=== PATIENT | male | born 1935 | race American Indian/Alaskan Native ===

== ENCOUNTER 2018-11-20 05:54 | Observation (INO) | payer MEDICARE ==
--- NOTE | 2018-11-16 10:54 | Anesthesia Consultation ---
Anesthesia Consult and Med Hx - Airway Anesthetic Teeth Evaluation: Dentures ROM Head & Neck: Adequate Mental/Hyoid Distance: Adequate Mallampati Class: Class II Intubation Access Assessment: Good - Pulmonary Exam CTA: Yes - Cardiac Exam Cardiac Exam: RRR - Pre-Operative Health Status ASA Pre-Surgery Classification: ASA2 Proposed Anesthetic Plan: General - Pulmonary Hx Smoking: No Hx Sleep Apnea: No (ANURADHA PRESCREEN HIGH RISK) - Cardiovascular System Hx Hypertension: Yes (X 10 YRS) - Endocrine Hx Hypothyroidism: Yes (OFF MEDS SINCE 04/2018) - Other Systems Hx Cancer: No
[2018-11-16 11:04] LABS: Basophils # (Auto) 0.1 K/mm3 (0.0-0.1); Eosinophils # (Auto) 0.2 K/mm3 (0.0-0.4); Eosinophils % (Auto) 4.3 % (0.0-4.3); Hematocrit 42.2 % (35.5-45.6); Hemoglobin 14.3 gm/dl (11.8-15.2); Lymphocytes # (Auto) 2.3 K/mm3 (1.2-5.4); Lymphocytes % (Auto) 46.5 % (13.4-35.0); Mean Corpuscular HGB Conc 34 % (32-34); Mean Corpuscular Volume 94 fl (84-94); Monocytes # (Auto) 0.6 K/mm3 (0.0-0.8); Monocytes % (Auto) 12.6 % (0.0-7.3); Platelet Count 172 K/mm3 (140-440); Red Cell Distribution Width 13.6 % (13.2-15.2)
[2018-11-16 11:19] LABS: Alanine Aminotransferase 35 units/L (7-56); Albumin 4.3 g/dL (3.9-5); BUN/Creatinine Ratio 12; Blood Urea Nitrogen 15 mg/dL (9-20); Calcium 9.5 mg/dL (8.4-10.2); Hemolysis Index 7
[2018-11-20] MEDS ORDERED: NACL BACTERIOSTATIC INFILTRATI ONE (07:00)
[2018-11-20] MEDS ORDERED: NEOSPORIN GU IR ONE ×2 (07:12→09:25)
[2018-11-20] MEDS ORDERED: TYLENOL PO NR (07:13)
[2018-11-20] MEDS ORDERED: DILAUDID IV PRN (07:13)
[2018-11-20] MEDS ORDERED: SUBLIMAZE IV PRN (07:13)
[2018-11-20] MEDS ORDERED: ZOFRAN IV PRN ×2 (07:13→10:59)
[2018-11-20] MEDS: LACTATED RINGERS 1,000 ML IV SCH (07:15)
--- NOTE | 2018-11-20 07:15 | Anesthesia Day of Surgery ---
Anesthesia Day of Surgery - Day of Surgery Patient Examined: Yes Patient H&P Reviewed: Yes Patient is NPO: Yes
[2018-11-20] MEDS ORDERED: XYLOCAINE MPF 2% ONE (07:37)
[2018-11-20] MEDS ORDERED: DIPRIVAN 10 MG/ML IV ONE (07:37)
[2018-11-20] MEDS ORDERED: SUBLIMAZE ONE (07:37)
[2018-11-20] MEDS ORDERED: NEURONTIN PO NR (08:00)
[2018-11-20] MEDS ORDERED: ANCEF/STERILE WATER 2 GM/20 ML IV NR (08:00)
[2018-11-20] MEDS ORDERED: GENTAMICIN 160 MG in NACL 0.9% 100 ML IV NR (08:00)
[2018-11-20] MEDS ORDERED: VERSED ONE (08:04)
[2018-11-20] MEDS ORDERED: NACL 0.9% 250ML 250 ML ONE (09:04)
[2018-11-20] MEDS ORDERED: DILAUDID ONE (10:27)
[2018-11-20] MEDS ORDERED: ZOFRAN ONE (10:32)
[2018-11-20] MEDS ORDERED: TYLENOL PO PRN (10:59)
[2018-11-20] MEDS ORDERED: MORPHINE IV PRN (10:59)
[2018-11-20] MEDS ORDERED: NARCAN 0.4 MG/1 ML IV PRN ×2 (10:59)
[2018-11-20] MEDS ORDERED: PERCOCET 5/325 PO PRN (10:59)
[2018-11-20] MEDS ORDERED: NORCO 5/325 PO PRN (10:59)
--- NOTE | 2018-11-20 10:59 | Post Operative Note ---
Date of procedure: 11/20/18 Pre-op diagnosis: organic ed Post-op diagnosis: same Findings: same Procedure: insertion ipp Anesthesia: HARSHADA Surgeon: KAL DAWKINS Filler In: NAKUL ISBELL Estimated blood loss: 50-100ml Pathology: none Condition: stable Disposition: PACU
--- NOTE | 2018-11-20 12:21 | Operative Report ---
PREOPERATIVE DIAGNOSIS: Organic erectile dysfunction. POSTOPERATIVE DIAGNOSIS: Organic erectile dysfunction. PROCEDURE: Insertion of penile implant. SURGEON: Dr. Toledo. ANESTHESIA: General. FINDINGS: This is a gentleman with organic erectile dysfunction, who presents for penile implant. All the risks and implications discussed with him and his . DESCRIPTION OF PROCEDURE: The patient was brought to the operating room and placed on the operating table. Following induction of anesthesia, placed in supine position, prepped and draped in usual sterile fashion. A 10-minute scrub was carried out. The patient is 83, very active, and we decided probably to put a 2 piece if it would have an excellent cosmetic result. A penoscrotal incision was made, carried down to both corpora. Mahajan was then placed and the bladder was emptied. Both corpora were identified and dissected free. Stay sutures were placed on each side without difficulty. The corporotomies were made and the dilation of both corpora was quite easy overt up to 15-Indonesian. At this point, with his age and everything looked like it would be an excellent cosmetic result, we place an Ambicor inflatable penile implant. Corporotomies were then closed after we determined that it looked quite well. We used the Rosetta to place both cylinders. The patient tolerated the procedure well. No significant complications. Corporotomies were closed. A subdartos pouch was created in the dependent portion of the scrotum and the surrounding fascia was secured with Vicryl. The patient tolerated the procedure well. The tubing was buried. We used 20 cm 14-Indonesian prosthesis with 6 cm rear tips. It was 13 proximal and 13 distal. The patient tolerated the procedure well. Wound throughout the procedure was copiously irrigated with antibiotic solution. Superficial fascia was closed with 3-0 Vicryl and skin with 3-0 Vicryl. The patient tolerated the procedure well and brought to recovery in stable condition. JOB# [id number] CALLI/KAMRAN
[2018-11-20] MEDS: GENTAMICIN/NS 80 MG/100 ML 100 ML IV SCH (17:39)
[2018-11-20] MEDS: ANCEF/NS 1 GM/50 ML 1 GM/50 ML BAG IV SCH (17:48)
--- NOTE | 2018-11-20 18:36 | Post Anesthesia Evaluation ---
- Post Anesthesia Evaluation Patient Participated: Yes Airway Patent: Yes Stable Respiratory Function: Yes Nausea/Vomiting: No Temp > 96.8F: Yes Pain Manageable: Yes Adequeate Hydration: Yes Anesthesia Complications: No Block Receding Appropriately: Not Applicable Patient on Ventilator: No
[2018-11-21] MEDS: LACTATED RINGERS 1,000 ML IV SCH (00:58)
[2018-11-21] MEDS: GENTAMICIN/NS 80 MG/100 ML 100 ML IV SCH ×2 (00:59→08:45)
[2018-11-21] MEDS: ANCEF/NS 1 GM/50 ML 1 GM/50 ML BAG IV SCH ×2 (01:45→09:47)
--- NOTE | 2018-11-21 07:24 | Consultation ---
History of Present Illness - Reason for Consult Consult date: 11/20/18 Medical management Requesting physician: KAL DAWKINS - History of Present Illness S/p IPP --post op doing well Past History Past Medical History: hypertension, hyperlipidemia Past Surgical History: Other (IPP) Social history: lives with family, full code Family history: hypertension Medications and Allergies Allergies Allergy/AdvReac Type Severity Reaction Status Date / Time No Known Allergies Allergy Verified 06/01/18 11:32 Home Medications Medication Instructions Recorded Confirmed Last Taken Type Allopurinol [Zyloprim] 100 mg PO QDAY 06/01/18 11/20/18 11/13/18 09:00 History Aspirin [Aspir-Low] 81 mg PO DAILY 06/01/18 11/20/18 11/13/18 09:00 History AtorvaSTATin [Lipitor] 40 mg PO QHS 06/01/18 11/20/18 11/19/18 21:00 History amLODIPine [Norvasc] 5 mg PO DAILY 06/01/18 11/20/18 11/20/18 05:00 History Active Meds: Active Medications Acetaminophen (Tylenol) 650 mg PO Q4H PRN PRN Reason: Pain MILD(1-3)/Fever >100.5/MAO Acetaminophen/Hydrocodone Bitart ([place] 5/325) 2 each PO Q6H PRN PRN Reason: Pain, Moderate (4-6) Lactated Ringer's (Lactated Ringers) 1,000 mls @ 100 mls/hr IV DIRECT GERALD Last Admin: 11/21/18 00:58 Dose: 100 mls/hr Documented by: Cefazolin Sodium (Ancef/Ns 1 Gm/50 Ml) 1 gm in 50 mls @ 100 mls/hr IV Q8H GERALD; Protocol Stop: 11/22/18 08:29 Last Admin: 11/21/18 01:45 Dose: 100 mls/hr Documented by: Gentamicin Sulfate/Sodium Chloride (Gentamicin/Ns 80 Mg/100 Ml) 100 mls @ 200 mls/hr IV Q8H GERALD; Protocol Stop: 11/21/18 08:29 Last Infusion: 11/21/18 01:49 Dose: Infused Documented by: Morphine Sulfate (Morphine) 2 mg IV Q4H PRN PRN Reason: Pain, Moderate (4-6) Naloxone HCl (Narcan 0.4 Mg/1 Ml) 0.1 mg IV Q2MIN PRN PRN Reason: Res Rate </= 8 or 02 SAT < 92% Ondansetron HCl (Zofran) 4 mg IV ONCE PRN PRN Reason: Nausea And Vomiting Ondansetron HCl (Zofran) 4 mg IV Q8H PRN PRN Reason: N/V unrelieved by Reglan Oxycodone/Acetaminophen (Percocet 5/325) 2 tab PO Q6H PRN PRN Reason: Pain, Moderate (4-6) Review of Systems All systems: negative Exam - Constitutional Vitals: Temp Pulse Resp BP Pulse Ox 97.4 F L 70 18 120/74 97 11/21/18 05:23 11/21/18 05:23 11/21/18 05:23 11/21/18 05:23 11/21/18 05:23 General appearance: Present: no acute distress, well-nourished - EENT Eyes: Present: PERRL ENT: hearing intact, clear oral mucosa - Neck Neck: Present: supple, normal ROM - Respiratory Respiratory effort: normal Respiratory: bilateral: CTA - Cardiovascular Heart Sounds: Present: S1 & S2. Absent: rub, click - Extremities Extremities: pulses symmetrical, No edema Peripheral Pulses: within normal limits - Abdominal General gastrointestinal: Present: soft, non-tender, non-distended, normal bowel sounds Male genitourinary: Present: normal - Integumentary Integumentary: Present: clear, warm, dry - Musculoskeletal Musculoskeletal: gait normal, strength equal bilaterally - Psychiatric Psychiatric: appropriate mood/affect, intact judgment & insight - Neurologic Neurologic: CNII-XII intact, moves all extremities Results - Labs CBC & Chem 7: 11/16/18 10:25 11/16/18 10:25 Assessment and Plan - Patient Problems (1) Status post surgery Current Visit: Yes Status: Acute Plan to address problem: Had IPP Postop doing well (2) HTN (hypertension) Current Visit: Yes Status: Chronic Qualifiers: Hypertension type: essential hypertension Qualified Code(s): I10 - Essential (primary) hypertension Plan to address problem: Cont antihypertensives (3) HLD (hyperlipidemia) Current Visit: Yes Status: Chronic Qualifiers: Hyperlipidemia type: mixed hyperlipidemia Qualified Code(s): E78.2 - Mixed hyperlipidemia Plan to address problem: Cont statins (4) DVT prophylaxis Current Visit: Yes Status: Acute Plan to address problem: On scds and GI prophylaxis
[2018-11-21] MEDS ORDERED: HALFPRIN EC PO SCH (10:00)
[2018-11-21] MEDS ORDERED: ZYLOPRIM PO SCH (10:00)
[2018-11-21] MEDS ORDERED: NORVASC PO SCH (10:00)
--- NOTE | 2018-11-21 12:40 | Progress Note ---
Assessment and Plan no eccymosis wrap removed cath out delon well home today Subjective Date of service: 11/21/18 Principal diagnosis: ED Objective - Constitutional Vitals: Vital Signs - 12hr 11/21/18 11/21/18 11/21/18 00:43 00:44 00:46 Temperature 97.8 F Pulse Rate 73 73 Respiratory 18 Rate Blood Pressure 111/62 O2 Sat by Pulse 97 96 Oximetry 11/21/18 11/21/18 05:23 07:21 Temperature 97.4 F L 97.9 F Pulse Rate 70 62 Respiratory 18 18 Rate Blood Pressure 120/74 129/80 O2 Sat by Pulse 97 95 Oximetry General appearance: Present: no acute distress - Neck Neck: supple - Gastrointestinal General gastrointestinal: Present: soft, non-tender - Genitourinary Male genitourinary: tender - Labs CBC & Chem 7: 11/16/18 10:25 11/16/18 10:25 Medications & Allergies - Medications Allergies/Adverse Reactions: Allergies No Known Allergies Allergy (Verified 06/01/18 11:32) Home Medications: Home Medications Medication Instructions Recorded Confirmed Last Taken Type Allopurinol [Zyloprim] 100 mg PO QDAY 06/01/18 11/20/18 11/13/18 09:00 History Aspirin [Aspir-Low] 81 mg PO DAILY 06/01/18 11/20/18 11/13/18 09:00 History AtorvaSTATin [Lipitor] 40 mg PO QHS 06/01/18 11/20/18 11/19/18 21:00 History amLODIPine [Norvasc] 5 mg PO DAILY 06/01/18 11/20/18 11/20/18 05:00 History Active Medications: Generic Name Dose Route Start Last Admin Trade Name Freq PRN Reason Stop Dose Admin Acetaminophen 650 mg 11/20/18 10:59 Tylenol PO Q4H PRN Pain MILD(1-3)/Fever >100.5/MAO Acetaminophen/Hydrocodone Bitart 2 each 11/20/18 10:59 [place] 5/325 PO Q6H PRN Pain, Moderate (4-6) Allopurinol 100 mg 11/21/18 10:00 11/21/18 09:40 Zyloprim PO 100 mg QDAY GERALD Administration Amlodipine Besylate 5 mg 11/21/18 10:00 11/21/18 09:40 Norvasc PO 5 mg DAILY GERALD Administration Aspirin 81 mg 11/21/18 10:00 11/21/18 09:40 Halfprin Ec PO 81 mg DAILY GERALD Administration Atorvastatin Calcium 40 mg 11/21/18 22:00 Lipitor PO QHS GERALD Lactated Ringer's 1,000 mls @ 100 mls/hr 11/17/18 20:00 11/21/18 00:58 Lactated Ringers IV 100 mls/hr DIRECT GERALD Administration Cefazolin Sodium 1 gm in 50 mls @ 100 mls/hr 11/20/18 16:00 11/21/18 09:47 Ancef/Ns 1 Gm/50 Ml IV 11/22/18 08:29 100 mls/hr Q8H GERALD Administration Protocol Morphine Sulfate 2 mg 11/20/18 10:59 Morphine IV Q4H PRN Pain, Moderate (4-6) Naloxone HCl 0.1 mg 11/20/18 10:59 Narcan 0.4 Mg/1 Ml IV Q2MIN PRN Res Rate </= 8 or 02 SAT < 92% Ondansetron HCl 4 mg 11/20/18 07:13 Zofran IV ONCE PRN Nausea And Vomiting Ondansetron HCl 4 mg 11/20/18 10:59 Zofran IV Q8H PRN N/V unrelieved by Brice Oxycodone/Acetaminophen 2 tab 11/20/18 10:59 11/21/18 09:39 Percocet 5/325 PO 2 tab Q6H PRN Administration Pain, Moderate (4-6)
--- NOTE | 2018-11-21 12:41 | Discharge Summary ---
Short Stay Discharge Plan Activity: other (no sex no straining ) Weight Bearing Status: Full Weight Bearing Diet: low fat, low cholesterol, low salt Wound: open to air Durable Medical Equipment Needed Upon Discharge: other (ice today ) Follow up with: YOANA MARKAHM MD [Primary Care Provider] - 7 Days KAL DAWKINS MD [Staff Physician] - 7 Days
--- NOTE | 2018-11-21 12:48 | Progress Note ---
Hospitalist Physical - Constitutional Vitals: Temp Pulse Resp BP Pulse Ox 97.9 F 62 18 129/80 95 11/21/18 07:21 11/21/18 07:21 11/21/18 07:21 11/21/18 07:21 11/21/18 07:21 General appearance: Present: no acute distress Results - Labs CBC & Chem 7: 11/16/18 10:25 11/16/18 10:25 Labs: Laboratory Last Values WBC 4.9 K/mm3 (4.5-11.0) 11/16/18 10:25 RBC 4.50 M/mm3 (3.65-5.03) 11/16/18 10:25 Hgb 14.3 gm/dl (11.8-15.2) 11/16/18 10:25 Hct 42.2 % (35.5-45.6) 11/16/18 10:25 MCV 94 fl (84-94) 11/16/18 10:25 MCH 32 pg (28-32) 11/16/18 10:25 MCHC 34 % (32-34) 11/16/18 10:25 RDW 13.6 % (13.2-15.2) 11/16/18 10:25 Plt Count 172 K/mm3 (140-440) 11/16/18 10:25 Lymph % (Auto) 46.5 % (13.4-35.0) H 11/16/18 10:25 [place] % (Auto) 12.6 % (0.0-7.3) H 11/16/18 10:25 Eos % (Auto) 4.3 % (0.0-4.3) 11/16/18 10:25 Baso % (Auto) 1.0 % (0.0-1.8) 11/16/18 10:25 Lymph # 2.3 K/mm3 (1.2-5.4) 11/16/18 10:25 [place] # 0.6 K/mm3 (0.0-0.8) 11/16/18 10:25 Eos # 0.2 K/mm3 (0.0-0.4) 11/16/18 10:25 Baso # 0.1 K/mm3 (0.0-0.1) 11/16/18 10:25 Seg Neutrophils % 35.6 % (40.0-70.0) L 11/16/18 10:25 Seg Neutrophils # 1.7 K/mm3 (1.8-7.7) L 11/16/18 10:25 Sodium 138 mmol/L (137-145) 11/16/18 10:25 Potassium 3.9 mmol/L (3.6-5.0) 11/16/18 10:25 Chloride 101.8 mmol/L (98-107) 11/16/18 10:25 Carbon Dioxide 25 mmol/L (22-30) 11/16/18 10:25 15 mmol/L 11/16/18 10:25 BUN 15 mg/dL (9-20) 11/16/18 10:25 1.3 mg/dL (0.8-1.5) 11/16/18 10:25 Estimated GFR > 60 ml/min 11/16/18 10:25 12 % 11/16/18 10:25 Glucose 133 mg/dL (75-100) H 11/16/18 10:25 Calcium 9.5 mg/dL (8.4-10.2) 11/16/18 10:25 0.50 mg/dL (0.1-1.2) 11/16/18 10:25 AST 32 units/L (5-40) 11/16/18 10:25 ALT 35 units/L (7-56) 11/16/18 10:25 88 units/L (35-129) 11/16/18 10:25 8.5 g/dL (6.3-8.2) H 11/16/18 10:25 4.3 g/dL (3.9-5) 11/16/18 10:25 1.0 % 11/16/18 10:25 Active Medications - Current Medications Current Medications: Generic Name Dose Route Start Last Admin Trade Name Freq PRN Reason Stop Dose Admin Acetaminophen 650 mg 11/20/18 10:59 Tylenol PO Q4H PRN Pain MILD(1-3)/Fever >100.5/MAO Acetaminophen/Hydrocodone Bitart 2 each 11/20/18 10:59 [place] 5/325 PO Q6H PRN Pain, Moderate (4-6) Allopurinol 100 mg 11/21/18 10:00 11/21/18 09:40 Zyloprim PO 100 mg QDAY GERALD Administration Amlodipine Besylate 5 mg 11/21/18 10:00 11/21/18 09:40 Norvasc PO 5 mg DAILY GERALD Administration Aspirin 81 mg 11/21/18 10:00 11/21/18 09:40 Halfprin Ec PO 81 mg DAILY GERALD Administration Atorvastatin Calcium 40 mg 11/21/18 22:00 Lipitor PO QHS GERALD Lactated Ringer's 1,000 mls @ 100 mls/hr 11/17/18 20:00 11/21/18 00:58 Lactated Ringers IV 100 mls/hr DIRECT GERALD Administration Cefazolin Sodium 1 gm in 50 mls @ 100 mls/hr 11/20/18 16:00 11/21/18 09:47 Ancef/Ns 1 Gm/50 Ml IV 11/22/18 08:29 100 mls/hr Q8H GERALD Administration Protocol Morphine Sulfate 2 mg 11/20/18 10:59 Morphine IV Q4H PRN Pain, Moderate (4-6) Naloxone HCl 0.1 mg 11/20/18 10:59 Narcan 0.4 Mg/1 Ml IV Q2MIN PRN Res Rate </= 8 or 02 SAT < 92% Ondansetron HCl 4 mg 11/20/18 07:13 Zofran IV ONCE PRN Nausea And Vomiting Ondansetron HCl 4 mg 11/20/18 10:59 Zofran IV Q8H PRN N/V unrelieved by Brice Oxycodone/Acetaminophen 2 tab 11/20/18 10:59 11/21/18 09:39 Percocet 5/325 PO 2 tab Q6H PRN Administration Pain, Moderate (4-6)
[2018-11-21 12:58] VITALS: BP 132/88
== END 2018-11-21 14:00 | disposition home or self-care (01) ==
LOC: OR 05:54 → EDBD 08:00 → 3B-SURG 10:59
PROVIDERS: ADMIT Urology; ATTEND Urology
DX: N52.9 Male erectile dysfunction, unspecified (principal)
CPT/HCPCS: 36415; 54405; 80053; 85025; 96365; 96366; 96368; C1813; G0378; J0690; J1170; J1580; J2250; J2405; J2704; J3010; J7050; J7120